=== PATIENT | male | born 1995 | race Caucasian/White ===

== ENCOUNTER 2022-11-01 10:57 | Emergency (ER) | payer OTHER, SELFPAY ==
[2022-11-01 11:18] VITALS: BP 151/100; PULSE 89; RESP 20; TEMP 36.4; O2SAT 98
--- NOTE | 2022-11-01 11:43 | ED.GENADULT ---
HPI - General Adult General Chief complaint: Upper Respiratory Infection Stated complaint: Sore Throat,Cough,Congestion Time Seen by Provider: 11/01/22 11:44 Source: patient Mode of arrival: ambulatory Limitations: no limitations History of Present Illness HPI narrative: 27-year-old male patient presents to the [facility] with complaints of sore throat, and cough the past 2-3 days. Patient denies any fevers, body aches or chills. Denies any chest pain, shortness of breath. Denies any abdominal pain, nausea, vomiting or diarrhea. Patient states he has been taking some [id number]-[id number] Mucinex for symptoms. Related Data Home Medications Medication Instructions Recorded Confirmed cetirizine 10 mg capsule (Zyrtec) 10 mg PO DAILY PRN 03/24/22 Allergies Allergy/AdvReac Type Severity Reaction Status Date / Time No Known Allergies Allergy Verified 03/24/22 16:24 Review of Systems Review of Systems: CONSTITUTIONAL: Denies fever, chills, or sweats. EYES: Denies visual changes, redness, or discharge. ENT: Denies rhinorrhea, congestion, positive sore throat, or otalgia. CARDIOVASCULAR: Denies chest pain, palpitations, or edema. RESPIRATORY: Positive cough denies dyspnea. GASTROINTESTINAL: Denies abdominal pain, nausea, vomiting, or diarrhea. GENITOURINARY: Denies dysuria or hematuria. SKIN: Denies rash or itching. MUSCULOSKELETAL: Denies back pain, joint pain, or myalgia. NEUROLOGIC: Denies headache, numbness, or weakness. PSYCHIATRIC: Denies anxiety or depression. PMFSH Surgical History Surgical History History of shoulder surgery Family History Family History Mother Heart disease Grandparent Heart disease Father Cancer Grandparent Cancer Other No problems noted. Social History Social History Smoking status: Never smoker Alcohol intake: current Substance use: never Comments At the time of my signature I agree with nursing past medical history, surgical, social, and family history. There is no relevant family history pertinent to the presenting complaint. Exam Narrative: GENERAL: Well-appearing, well-nourished, and in no acute distress. HEAD: Normocephalic, atraumatic. EYES: PERRLA and EOMI. ENT: Nares with erythema and edema noted bilateral, no rhinorrhea or epistaxis. Mucous membranes moist. TMs clear bilaterally. Posterior pharynx no erythema, No tonsillar enlargement, no exudates or lesions present. NECK: Supple. No lymphadenopathy CHEST: Clear to auscultation. No respiratory distress. HEART: Regular rate and rhythm. No murmur heard. Normal peripheral pulses. ABDOMEN: Soft, nontender, nondistended, normal active bowel sounds. EXTREMITIES: Normal range of motion. No edema. SKIN: Warm, dry, no rash. NEURO: No focal deficits. Alert and oriented x3. Course Course Level of Care: Express Care Visit Vital Signs Vital signs: Vital Signs Temperature 36.4 C 11/01/22 11:18 Pulse Rate 89 11/01/22 11:18 Respiratory Rate 20 11/01/22 11:18 Blood Pressure 151/100 H 11/01/22 11:18 Pulse Oximetry 98 11/01/22 11:18 Oxygen Delivery Room Air 11/01/22 11:18 Temperature 36.4 C 11/01/22 11:18 Pulse Rate 89 11/01/22 11:18 Respiratory Rate 20 11/01/22 11:18 Blood Pressure 151/100 H 11/01/22 11:18 Pulse Oximetry 98 11/01/22 11:18 Oxygen Delivery Room Air 11/01/22 11:18 vital signs reviewed The patient has been informed that they may have pre-hypertension or Hypertension based on a BP reading in the department. I recommend that the patient call the primary care provider listed on their discharge instructions or a physician of their choice this week to arrange follow up for further evaluation of possible pre-hypertension or Hypertension Medical Decision Making MDM Narrative Medical
== END 2022-11-01 12:40 | disposition home or self-care (01) ==
PROVIDERS: Emergency Provider Nurse Practitioner Family; PCP Family Medicine
DX: J06.9 Acute upper respiratory infection, unspecified (principal); R05.9 Cough, unspecified; J02.9 Acute pharyngitis, unspecified; Z20.822 Contact with and (suspected) exposure to COVID-19
CPT/HCPCS: 87081; 87426; 99213; C9803; G0463

== ENCOUNTER 2024-12-11 09:49 | Emergency (ER) | payer OTHER, SELFPAY ==
[2024-12-11 10:00] VITALS: BP 151/78; PULSE 89; RESP 18; TEMP 36.4; O2SAT 97
--- NOTE | 2024-12-11 10:00 | ED.URI ---
HPI - URI/Sore Throat General Chief Complaint: Upper Respiratory Infection Stated Complaint: Congestion, Fever Time Seen by Provider: 12/11/24 10:00 Source: patient, family, RN notes reviewed and old records reviewed Mode of arrival: ambulatory Limitations: no limitations History of Present Illness HPI Narrative: patient presents with 2 day history of cough, headache, body aches, runny nose, chills, sweats. States that he does not believe he has been running a fever at home. Has been taking jvxo-zpc-nifidus medication with moderate results. States that he feels as though medications were working better at the beginning of his illness than they are now. He is not in any distress. Denies any injury or trauma. Voices no other concerns or complaints today Related Data Home Medications ?Medication ?Instructions ?Recorded ?Confirmed ?Last Taken ?Type cetirizine 10 mg capsule (Zyrtec) 10 mg PO DAILY PRN 03/24/22 Unknown History amlodipine 5 mg tablet mg 12/11/24 Unknown History benazepril 10 mg tablet mg 12/11/24 Unknown History Allergies Allergy/AdvReac Type Severity Reaction Status Date / Time No Known Allergies Allergy Verified 12/11/24 10:01 Review of Systems Review of Systems: All systems reviewed & are unremarkable except as noted in HPI and below Constitutional: Constitutional: Reports no additional constitutional complaints, Reports body ache(s), Reports chills, Reports fever(s), Reports headache(s) and Reports lethargy ENT: Reports system reviewed and no additional complaints, except as documented, Reports nasal congestion and Reports nasal discharge Cardiovascular: Cardiovascular: Reports no additional cardiovascular complaints Respiratory: Respiratory: Reports no additional respiratory complaints and Reports cough Gastrointestinal: Gastrointestinal: Reports no additional gastrointestinal complaints [facility] Surgical History Surgical History History of shoulder surgery Family History Family History Mother Heart disease Grandparent Heart disease Father Cancer Grandparent Cancer Other No problems noted. Social History Social History Smoking status: Never smoker Alcohol intake: current Substance use: never Comments At the time of my signature, I reviewed and agree with the nursing past medical, surgical, social, and family history. There is no relevant family history pertinent to the patient complaint. Exam Const: General: cooperative, no acute distress, alert and awake Orientation/consciousness: oriented to person, oriented to place and oriented to time HENMT: Head: normal to inspection Ears: TM's normal bilaterally Mouth: Yes moist mucous membranes Resp: Effort & Inspection: normal respiratory effort and able to speak in complete sentences Auscultation: clear to auscultation bilaterally, no crackles, no rales, no rhonchi and no wheezes Cardio: Palpation: normal PMI Rate: regular rate Rhythm: regular rhythm Heart sounds: S1 normal heart sound present and S2 normal heart sound present Neuro: General: oriented to person, oriented to place and oriented to time Cranial nerves: Yes CN's II-XII intact bilaterally Psych: Appearance: grossly normal Thought process: Normal thought process present Insight: Good insight present (Psych) Judgement: Good judgement present (Psych) Course Course Level of Care: Express Care Visit Vital Signs Vital signs: Reviewed MDM - URI/Sore Throat MDM Narrative Medical decision making narrative: reassuring physical exam. Patient positive for influenza A. Supportive care measures discussed. Discharge instructions reviewed with patient, as well as provided in writing per nursing staff. The instructions also include specific and strict return/GO TO THE ER as well as f/u information. All questions have been answered, and the patient deny any further questions with discharge and discharge plan. Some parts of this dictation were generated by voice recognition software and may contain typographical and/or grammatical inaccuracies. Differential Diagnosis Differential diagnosis: Likely upper respiratory infection, otitis media, viral infection and influenza Medical Records Attestation: I reviewed the patient's medical records. Lab Data Attestation: I reviewed the patient's lab results. Discharge Plan Discharge Clinical Impression: Influenza Patient Disposition: Home, Self-Care Condition: Stable Instructions: Antibiotic Form, Influenza (ED) Additional Instructions: Use qtli-hht-[id number] medications per package instruction to treat your symptoms. Follow with primary care provider. Emergency department for new or worse symptoms Patient Language: Serbian Prescriptions: No Action amlodipine 5 mg tablet benazepril 10 mg tablet Zyrtec 10 mg capsule 10 mg PO DAILY PRN Follow-up/Referrals: Terri,John Lovelace MD [Primary Care Provider] - 2 Weeks Stand Alone Forms: Work/School Release IP Time of Disposition: 10:21
[2024-12-11 10:25] LABS: EDCOVIDSCREEN Negative (Negative); EDINFLUASCREEN Positive (Negative); EDINFLUBSCREEN Negative (Negative)
--- OUTSIDE RECORDS SUMMARY | 2024-12-11 10:34 | XMS_ITS | Encounter Summary ---
Author Organization [facility] Address [facility] [facility] [place] [address] [place] [address] Care Team Providers Care Rotary Driller Name Role Phone John Murray MD Primary Care Provider [phone] Encounter Details Date Type Department Care Team (Late st Contact Info) Description 01/19/2024 [facility] Message Enc [facility] Provider Action Needed Social History Tobacco Use Types Packs/Day Years Used Date Smoking Tobacco: Never Smokeless Tobacco: Never Alcohol Use Standard Drinks/Week Comments Yes 0 (1 standard drink = 0.6 oz pur e alcohol) social PHQ-2 Answer Date Recorded Patient Health Questionnaire-2 Score 0 07/05/2023 Sex and Gender Information Value Date Recorded Sex Assigned at Not on file Legal Sex Male 8:34 PM CDT Gender Identity Not on file Sexual Orientation Not on file Occupation Industry Job Start Date Job End Date student Not on file Not on file Not on file documented as of this encounter Plan of Treatment Not on file documented as of this encounter Visit Diagnoses Not on filedocumented in this encounter Additional Health Concerns Assessment Noted Time PHQ-9 Depression Total Score: 0 02/11/20 22 11:35 AM CDT documented as of this encounter Care Teams Rotary Driller Relationship Specialty [place] [address] [place] [address] PCP - General FAMILY PRACTICE 05/22/19 documented as of this encounter
--- OUTSIDE RECORDS SUMMARY | 2024-12-11 10:34 | XMS_ITS | Clinical Summary ---
Author Organization [facility] Address [address] [place] [address] Care Team Providers Care Varnish Finisher Name Role Phone Jhon Murray MD Primary Care Provider [phone] Allergies No known active allergies Medications cetirizine (ZyrTEC) 10 mg tablet Take 1 tablet (10 mg total) by mouth daily Active fluticasone propionate (FLONASE) 50 mcg/actuation nasal spray Administer 1 spray into each nostril daily as needed for rhinitis Active multivitamin capsule Take 1 capsule by mouth daily For men under 50 Active DIETARY SUPPLEMENT ORAL Take 100 mg by mouth 2 (two) times a day Qunol gummies CoQ10 Active benazepriL (LOTENSIN) 10 mg tablet Take 1 tablet (10 mg total) by mouth daily 30 tablet 11 4 03/23/20 25 Active amLODIPine (NORVASC) 5 mg tablet Take 1 tablet by mouth once daily 90 tablet 3 4 Active Active Problems Problem Noted Date Diagnosed Date Sprain of medial collateral ligament of knee Knee pain 05/05/2012 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 Arthralgia of shoulder 12/23/2010 Social History Tobacco Use Types Packs/Day Years Used Date Smoking Tobacco: Never Tobacco Cessation:Counseling Given: Not Answered Personal Safety Answer Date Recorded Getting School Help Needed Not on file 11/18 Sex and Gender Information Value Date Recorded Sex Assigned at Not on file 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 Gender Identity Not on file Sexual Orientation Not on file Obstetrics History Last Filed Vital Signs Vital Sign Reading Time Taken Comments Blood Pressure 164/92 03/23/2024 8:42 AM CDT Pulse 71 03/23/2024 8:42 AM CDT Temperature - - Respiratory Rate - - Oxygen Saturation 99% 03/23/2024 8:42 AM CDT Inhaled Oxygen Concentration - - Weight 147.3 kg (324 lb 12.8 oz) 03/23/2024 8:42 AM CDT Height 182.9 cm (6') 03/23/2024 8:42 AM CDT Body Mass Index 44.05 03/23/2024 8:42 AM CDT Plan of Treatment Health Maintenance Due Date Last Done Comments Depression Screening 1994 Hepatitis C Screening 1994 DTaP/Tdap/Td Vaccine (4 - Tdap) 2005 02/08/1995, 1994, 1994 Varicella Vaccines (1 of 2 - 13+ 2-dose series) 2007 Regular Well Visit/Exam 18-64 2012 Covid-19 Vaccine (3 - 2023-2 5 season) 2024 08/24/2021, 07/19/2021 Influenza Vaccine (#1) 2024 HPV Vaccines Aged Out No longer eligi ble based on patient's age to complete this topic Pneumococcal vaccine <65 Aged Out No longer eligible based on patient's age to complete this [place] [address] [facility] HMO/PPO Address[facility] [address] [place] [address] [facility] HMO/PPO Address: [place] [address] [facility] [place]MO/[place] [address] Care Teams Varnish Finisher Relationship Specialty [place] [address] [address] PCP - General Family Practice 03/19/22
--- OUTSIDE RECORDS SUMMARY | 2024-12-11 10:34 | XMS_ITS | Referral Summary ---
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 Gender Identity Not on file Sexual Orientation Not on file Last Filed Vital Signs Vital Sign Reading [...] 03/23/2024 8:42 AM CDT Plan of Treatment Not on file Insurance [facility] [employer]/PPO Address: [place] [address] [facility] HMO/PPO Address: [address] [place] [address] [facility] HMO/PPO Address: [address] [address] [place] [address] Care Teams Sander And Buffer Relationship Specialty [place] [address] [address] PCP - General Family Practice 03/19/22
--- OUTSIDE RECORDS SUMMARY | 2024-12-11 10:34 | XMS_ITS | Clinical Summary ---
Author Organization [facility] Address [facility] [place] [address] [place] [address] Care Team Providers Care Automotive Service Assistant Name Role Phone John Murray MD Primary Care Provider Allergies No known active allergies Medications cetirizine (ZYRTEC) 10 MG tablet Take 1 tablet (10 mg total) by mouth daily. Active amLODIPine (NORVASC) 5 MG tablet Take 1 tablet (5 mg total) by mouth daily. Active fluticasone propionate (FLONASE) 50 MCG/ACT nasal spray 1 spray by Nasal route. 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 Arthralgia of shoulder 12/23/2010 Immunizations Name Administration Dates Next Due Dtp/Hib 02/08/1995,1994,1994 Hepatitis B 1994 MENINGOCOCCAL A C Y&W-135 ol igosaccharide (MENVEO) 05/01/2013 Opv 02/08/1995,1994,1994 Family History Medical History Relation Comments Multiple Sclerosis Brother Cancer Father throat Cancer Maternal Grandfather lung Coronary artery disease Maternal Grandmother Coronary artery disease Mother Heart Disease Mother Relation Status Comments Brother Father Alive Maternal Grandfather Maternal Grandmother Mother Alive Social History Tobacco Use Types Packs/Day Years Used Date Smoking Tobacco: Never Smokeless Tobacco: Never Tobacco Cessation:Counseling Given: No Alcohol Use Standard Drinks/Week Comments Yes 0 [...] file Not on file Not on file Last Filed Vital Signs Vital Sign Reading Time Taken Comments Blood Pressure 132/82 07/05/2023 3:40 PM CDT Pulse 85 07/05/2023 3:40 PM CDT Temperature 36.7 ??C (98.1 ??F) 07/05/2023 3:40 PM CD T Respiratory Rate 17 07/05/2023 3:40 PM CDT Oxygen Saturation 97% 07/05/2023 3:40 PM CDT Inhaled Oxygen Concentration - - Weight 150 kg (330 lb 12.8 oz) 07/05/2023 3:40 P M CDT Height 182.9 cm (6') 07/05/2023 3:40 PM CDT Body Mass Index 44.86 07/05/2023 3:40 PM CDT Plan of Treatment Health Maintenance Due Date Last Done Comments Hepatitis B Vaccines (2 of 3 - 3-dose series) 1994 1994 Hepatitis C 2012 DTaP, Tdap and Td Vaccines ( 1 - Tdap) 2013 02/08/1995, 1994, 1994 Annual Physical 05/24/2020 05/24/2019 PHQ-2 (Physician [place]) 07/05/2024 07/05/2023 COVID-19 Vaccine (3 - 2023-2 5 season) 2024 08/24/2021, 07/19/2021 Influenza Adult (#1) 2024 PHQ-2 (Physician [place]) 11/15/2024 07/05/2023 Meningococcal Vaccine Completed 05/01/2013 HPV Vaccines Aged Out No longer eligi ble based on patient's age to complete this topic Meningococcal B Vaccine Aged Out No l onger eligible based on patient's age to complete this topic Pneumococcal Vaccine: Pediatrics (0 to 5 Years) and At-Risk Patients (6 to 64 Years) Aged Out No longer eligible b ased on patient's age to complete this topic RSV Immunizations Under 20 Months Aged Out No longer eligible b ased on patient's age to complete this topic Insurance [address] [address] Care Teams Automotive Service Assistant Relationship Specialty [place] [address] [place] [address] PCP - General FAMILY PRACTICE 05/22/19
== END 2024-12-11 10:27 | disposition home or self-care (01) ==
PROVIDERS: Emergency Provider Nurse Practitioner Family; PCP Family Medicine
DX: J10.1 Influenza due to other identified influenza virus with other respiratory manifestations (principal); Z20.822 Contact with and (suspected) exposure to COVID-19
CPT/HCPCS: 87426; 87804; 99212; G0463